=== PATIENT | female | born 1965 | race Caucasian/White ===

== ENCOUNTER 2017-04-22 03:34 | Inpatient (IN) | payer BC, OTHER ==
[~2017-04-22] VITALS: Ht 154.9 cm; Wt 66.7 kg
--- NOTE | 2017-04-22 03:45 | NUR ---
TO BED 5 A 52 YO FEMALE PATIENT BIBRA C/O "ABD PAIN X 2 HOURS" WITH NAUSEA AND VOMITING. VSS. NAD NOTED AT THIS TIME. SKIN WARM AND DRY. PLACED ON MONITOR. COMFORT MEASURES RENDERED.
[2017-04-22] MEDS ORDERED: ONDANSETRON HCL/PF 4 MG/2 ML VIAL ONE (04:21)
[2017-04-22] MEDS ORDERED: MORPHINE SULFATE INJ 4 MG/ML DISP.SYRIN ONE (04:22)
[2017-04-22 04:27] LABS: BASOPHILS # (AUTO) 0.1 /CMM (0.0-0.2); BASOPHILS % (AUTO) 0.3 % (0.0-2.0); EOSINOPHILS % (AUTO) 0.1 % (0.0-6.0); HEMATOCRIT 43 % (33-45); HEMOGLOBIN 15.1 g/dL (11.5-14.8); LYMPHOCYTES # (AUTO) 1.5 /CMM (0.8-4.8); LYMPHOCYTES % (AUTO) 7.8 % (20.0-44.0); MEAN CORPUSCULAR HEMOGLOBIN 34 PG (26.0-33.0); MEAN CORPUSCULAR HGB CONC 35 g/dl (31.0-36.0); MEAN CORPUSCULAR VOLUME 97 fL (82-100); MONOCYTES # (AUTO) 0.1 /CMM (0.1-1.30); MONOCYTES % (AUTO) 0.8 % (2.0-12.0); NEUTROPHILS # (AUTO) 17.5 /CMM (1.8-8.9); PLATELET COUNT (AUTO) 303 /CMM (150-450); RDW COEFFICIENT OF VARIATION 13.7 (11.5-15.0); RED BLOOD CELL COUNT(AUTO) 4.46 MIL/uL (4.0-5.2); WHITE BLOOD COUNT (AUTO) 19.3 K/uL (4.3-11.0)
[2017-04-22 04:30] LABS: APPEARANCE,URINE SL CLOUDY (CLEAR); BILIRUBIN,URINE 1+ (NEGATIVE); BLOOD, URINE NEGATIVE Ery/uL (NEGATIVE); KETONES,URINE TRACE (NEGATIVE); LEUKOCYTE ESTERASE ,URINE NEGATIVE (NEGATIVE); NITRITE, URINE NEGATIVE (NEGATIVE); PROTEIN,URINE 1+ mg/dl (NEGATIVE); UGLUCOSE NEGATIVE (NEGATIVE); UROBILINOGEN,URINE 0.2 EU/dL (0.2)
[2017-04-22] MEDS ORDERED: MORPHINE SULFATE INJ 2 MG/ML DISP.SYRIN IV ONE (04:30)
[2017-04-22] MEDS ORDERED: ONDANSETRON HCL/PF - ER 4 MG/2 ML VIAL IV ONE (04:30)
--- NOTE | 2017-04-22 04:30 | NUR ---
STARTED A SALINE LOCK ON LAC G20.
[2017-04-22 04:31] LABS: COLOR,URINE DARK YELLOW (YELLOW)
--- NOTE | 2017-04-22 04:34 | NUR ---
MEDICATED PATIENT ORDERED BY DR LORA.
[2017-04-22 04:36] LABS: CALCIUM, SERUM 12.3 mg/dL (8.5-10.1); CREATININE 1.4 mg/dL (0.6-1.3); POTASSIUM 3.9 mmol/L (3.5-5.1)
[2017-04-22 04:36] LABS: BACTERIA,URINE Moderate /HPF (None Seen); CALCIUM OXALATE CRYSTALS,UR Moderate /HPF (None Seen); RBC,URINE 0-2 /HPF (0-2); SQUAMOUS EPITHELIAL CELL,UR Many /HPF (None Seen)
--- NOTE | 2017-04-22 04:38 | NUR ---
PATIENT TO CT.
[2017-04-22 04:42] LABS: ALBUMIN 4.6 g/dL (3.4-5.0); BILIRUBIN,DIRECT 0.1 mg/dL (0.0-0.2); BILIRUBIN,TOTAL 0.5 mg/dL (0.2-1.0); TOTAL PROTEIN, SERUM 8.6 g/dL (6.4-8.2)
[2017-04-22] MEDS ORDERED: HYDROMORPHONE INJ 0.5 MG/0.5 ML SYRINGE ONE (05:21)
[2017-04-22] MEDS ORDERED: HYDROMORPHONE INJ 0.5 MG/0.5 ML SYRINGE IV ONE (05:30)
[2017-04-22] MEDS ORDERED: NA PHOS,M-B/NA PHOS,DI-BA 1 EA ENEMA RC ONE ×2 (05:30→05:35)
[2017-04-22] MEDS ORDERED: KETOROLAC TROMETHAMINE INJ 30 MG/ML VIAL ONE (05:39)
--- NOTE | 2017-04-22 05:48 | NUR ---
PATIENT IN THE BATHROOM AT THIS TIME.
[2017-04-22] MEDS ORDERED: PIPERACILLIN /TAZOBACTAM 3.375 G VIAL IV ONE (06:00)
[2017-04-22] MEDS ORDERED: PIPERACILLIN /TAZOBACTAM 3.375 G in IV D5W 50 ML IV SCH ×2 (06:00→12:00)
[2017-04-22] MEDS ORDERED: MAG HYDROX/AL HYDROX/SIMETH 30 ML UDC PO PRN (06:00)
[2017-04-22] MEDS ORDERED: MORPHINE SULFATE INJ 2 MG/ML DISP.SYRIN IV PRN (06:00)
[2017-04-22] MEDS ORDERED: Z GUARD REMEDY 2 OZ OINT TP PRN (06:00)
[2017-04-22] MEDS ORDERED: KETOROLAC TROMETHAMINE INJ 30 MG/ML VIAL IV ONE (06:00)
[2017-04-22] MEDS ORDERED: PIPERACILLIN /TAZOBACTAM 3.375 G in IV D5W 50 ML IV ONE (06:00)
--- NOTE | 2017-04-22 06:14 | NUR ---
CALLED FOR M/S BED.
[2017-04-22] MEDS ORDERED: MAGNESIUM HYDROXIDE 30 ML UDC ONE (06:17)
[2017-04-22] MEDS: MAGNESIUM HYDROXIDE 30 ML UDC PO PRN ×2 (06:23→23:35)
--- NOTE | 2017-04-22 06:29 | NUR ---
M/S 206-1 S/P CHANGE OF SHIFT PER HOUSE SUP
[2017-04-22] MEDS ORDERED: LAMO200T2 PO (06:49)
[2017-04-22] MEDS ORDERED: SERT100T PO (06:49)
[2017-04-22] MEDS ORDERED: VENL150C2 PO (06:49)
--- NOTE | 2017-04-22 07:24 | NUR ---
REPORT GIVEN TO COLTEN RAMIREZ FOR MS ADMISSION AND EDUARD.
[2017-04-22] MEDS ORDERED: PANTOPRAZOLE 40 MG TABLET.DR PO SCH (07:30)
[2017-04-22 07:33] LABS: TROPONIN I < 0.017 ng/mL (0.00-0.056)
[2017-04-22] MEDS ORDERED: BUDE10.2 IH (07:42)
[2017-04-22] MEDS ORDERED: ALBU8.5H8 IH (07:42)
[2017-04-22] MEDS ORDERED: LISI1TAB11 PO (07:42)
[2017-04-22 08:00] VITALS: BP 122/80
[2017-04-22] MEDS: IV NS 0.9% 1,000 ML IV PRN ×2 (08:12→23:35)
--- NOTE | 2017-04-22 09:08 | NUR ---
MS RN ADMITTING NOTES ADMITTED PT TO UNIT VIA WHEELCHAIR ALERT AND ORIENTED X4 ACCOMPANIED BY E.R. STAFF AND . PT TRANSFERRED TO BED AND ORIENTED TO UNIT. PT WITH DX OF ABDOMINAL PAIN AND HYPERCALCEMIA. V/S TAKEN AND RECORDED. PT ON ROOM AIR, BREATHING EVEN AND UNLABORED. ABDOMEN IS SOFT AND SLIGHTLY DISTENDED APPARENTLY DUE TO NOT HAVING BOWEL MOVEMENT SINCE LAST NIGHT BUT PT IS PASSING GAS AT TIMES. PT WITH IV ACCESS ON LEFT AC G#20, IVF OF NS @ 75ML/HR, NO INFILTRATIONS NOTED. SAFETY PRECAUTIONS INITIATED. BED IN LOW/LOCKED POSITION, CALL LIGHT KEPT WITHIN REACH. WILL CONTINUE TO MONITOR PT ACCORDINGLY.
[2017-04-22] MEDS ORDERED: IV NS 0.9% 1,000 ML IV PRN (12:00)
--- NOTE | 2017-04-22 12:08 | NUR ---
RN NOTES RECEIVED CALL FROM [facility] THAT PT'S LACTIC ACID WENT-UP FROM 3.1 TO 4.5, DR RAY Howard ON UNIT MADE AWARE WITH ORDER TO GIVE BOLUS OF NS 1,000ML AND REPEAT LACTIC ACID AFTER. WILL CONTINUE TO MONITOR.
[2017-04-22] MEDS: SERTRALINE HCL 50 MG TABLET PO SCH (12:12)
[2017-04-22] MEDS: PIPERACILLIN /TAZOBACTAM 3.375 G in IV NS 0.9% 50 ML IV SCH ×3 (12:13→23:35)
[2017-04-22] MEDS: VENLAFAXINE XR 150 MG CAP.SR.24H PO SCH (12:13)
[2017-04-22] MEDS: LamoTRIgine 100 MG TABLET PO SCH (12:13)
[2017-04-22 14:27] LABS: HEMOGLOBIN 14.8 g/dL (11.5-14.8)
[2017-04-22 16:00] VITALS: BP 122/80
[2017-04-22] MEDS ORDERED: CT SWABBABLE VALVE TRANS SET 1 EA INFUS.SET MC ONE (16:27)
[2017-04-22] MEDS ORDERED: IOHEXOL-350 100 ML VIAL IV ONE (16:27)
[2017-04-22] MEDS ORDERED: PEG 3350/NA SULF,BICARB,CL/KCL 4,000 ML BOTTLE PO ONE (16:30)
[2017-04-22] MEDS: ONDANSETRON HCL/PF 4 MG/2 ML VIAL IVP PRN (18:29)
[2017-04-22] MEDS: HYDROCODONE/APAP 5/325MG 1 EACH TABLET PO PRN (18:32)
--- NOTE | 2017-04-22 18:36 | NUR ---
RN NOTES PT HAD BOWEL MOVEMNET WITH WATERY BRWNISH MIXED WITH BLOOD FECES. LUMBER TRIMMER PAT ON UNIT AND AWARE. PT ALSO RESTLESS AND VOMITING AND C/O ABDOMINAL PAIN. CALLED PHARMACY FOR MORPHINE IVP BUT MED IS NOT AVAILABLE. CALLED DR BELL AND MADE AWARE WITH ORDER TO TRY NORCO 5/325MG, DISCONTINUE GOLYTELY, GIVE ONLY CLEAR LIQUID AND NPO POST MIDNIGHT UNTIL FURTHER INSTRUCTIONS/ORDER FROM MD. EXPLAINED TO PT AND AND BOTH VERBALIZED UNDERSTANDING. WILL CONTINUE TO MONITOR..
--- NOTE | 2017-04-22 19:36 | NUR ---
MS RN CLOSING NOTES DR COOK CAME TO UNIT WITH ORDER TO INSERT NGTUBE CONNECTED TO SUCTION AND CONTINUE WITH GOLYTELY VIA NGT TOLERATED. SUE CRAMER EXPLAINED TO PT AND AND VERBALIZED UNDERSTANDING. ALL NEEDS AND CARE ATTENDED WELL. IVF CONTINUES. ALL SAFETY MEASURES IN PLACED. CALL LIGHT WITHIN EASY REACH. ENDORSED TO REGULATORY LEADER NURSE.
--- NOTE | 2017-04-22 19:59 | NUR ---
MS RN NOTE: RECEIVE PT IN BED, A/O X4, NO ACUTE DISTRESS NOTED. BREATHING EVEN AND UNLABORED, NO SOB NOTED. BED LOCKED AND IN LOWEST POSITION, CALL LIGHT IN REACH. WILL CONTINUE TO MONITOR
[2017-04-22 20:00] VITALS: BP 135/88
--- NOTE | 2017-04-22 21:31 | NUR ---
MS RN NOTES PAGED DR. COOK, TO RELAY I WAS INSERTING NGT TO BOTH NARES + RESISTANCE, PT CRYING AND DOESN'T WANT TO PUT NGT ANYMORE. PER PT SHE HAS DEVIATED SEPTUM
--- NOTE | 2017-04-22 21:54 | NUR ---
PT REFUSED NGT INSERTION DESPITE EXPLAINING RISKS AND BENEFITS OFFERED [address] SUE BAE AWARE
--- NOTE | 2017-04-22 21:54 | NUR ---
MS RN NOTES SPOKE TO DR. COOK RELAYED POSITIVE RESISTANCE IN BOTH NARES WHILE INSERTING NGT REFUSING AT THIS MOMENT. PER DR. COOK AGREE NOT TO INSERT IF PT'S DOESN'T TOLERATE IT.
[2017-04-22] MEDS: PANTOPRAZOLE 40 MG VIAL IV SCH (23:35)
[2017-04-23] MEDS: MORPHINE SULFATE INJ 4 MG/ML DISP.SYRIN IV PRN ×5 (02:12→20:05)
[2017-04-23] MEDS: PIPERACILLIN /TAZOBACTAM 3.375 G in IV NS 0.9% 50 ML IV SCH ×4 (05:08→23:14)
[2017-04-23 06:56] LABS: EOSINOPHILS % (AUTO) 0.3 % (0.0-6.0); HEMATOCRIT 36 % (33-45); HEMOGLOBIN 12.7 g/dL (11.5-14.8); LYMPHOCYTES # (AUTO) 0.5 /CMM (0.8-4.8); LYMPHOCYTES % (AUTO) 5.7 % (20.0-44.0); MEAN CORPUSCULAR HEMOGLOBIN 34 PG (26.0-33.0); MEAN CORPUSCULAR HGB CONC 35 g/dl (31.0-36.0); MEAN CORPUSCULAR VOLUME 97 fL (82-100); MONOCYTES # (AUTO) 0.6 /CMM (0.1-1.30); MONOCYTES % (AUTO) 6.6 % (2.0-12.0); NEUTROPHILS # (AUTO) 7.8 /CMM (1.8-8.9); NEUTROPHILS % (AUTO) 87.4 % (43.0-81.0); PLATELET COUNT (AUTO) 198 /CMM (150-450); RDW COEFFICIENT OF VARIATION 13.7 (11.5-15.0); RED BLOOD CELL COUNT(AUTO) 3.72 MIL/uL (4.0-5.2); WHITE BLOOD COUNT (AUTO) 8.9 K/uL (4.3-11.0)
--- NOTE | 2017-04-23 07:04 | NUR ---
MS RN CLOSING NOTES PT COMFORTABLY ASLEEP AND EASILY AWAKEN, TOLERATING ROOM AIR 02 SAT 98%, IN STABLE CONDITION. RESPIRATION EVEN AND UNLABORED. KEPT CLEAN AND DRY AND COMFORTABLE, ALL NURSING CARE RENDERED. NEEDS ATTENDED AND ANTICIPATED, FREQUENT VISUAL CHECK DONE FOR SAFETY EVERY 2 HOURS. GOOD SKIN CARE PROVIDED. ON LOW BED AT ALL TIMES TO ENSURE SAFETY. SAFE HAZARD FREE ENVIRONMENT PROVIDED. CALL LIGHT WITHIN EASY TO REACH. WILL ENDORSE NEXT SHIFT CONTINUITY OF CARE. NO C/O OF PAIN,
[2017-04-23 07:06] LABS: CALCIUM, SERUM 8.2 mg/dL (8.5-10.1); CREATININE 1.2 mg/dL (0.6-1.3); MAGNESIUM 2.4 mg/dL (1.8-2.4); PHOSPHORUS 3.8 mg/dL (2.5-4.9); POTASSIUM 3.7 mmol/L (3.5-5.1)
--- NOTE | 2017-04-23 07:06 | NUR ---
STILL REFUSING NGT
[2017-04-23 07:09] VITALS: BP 134/70
[2017-04-23 07:10] LABS: THYROID STIMULATING HORMONE 0.53 uIU/mL (0.358-3.74)
--- NOTE | 2017-04-23 07:20 | NUR ---
RN NOTES PATIENT A/OX3, REFUSING NGT. REFUSING GOLYTELY, PER PATIENT IT MAKES HER VOMIT. EXPLAINED RISKS AND BENEFITS. STILL C/O ABDOMINAL PAIN. NPO AT THIS TIME. IVF INFUSING AND TOLERATING WELL, PATIENT STATED SHE HAS LIQUID STOOL WITH BLOOD. PATIENT IS SCHEDULED FOR AN EGD AND COLONOSCOPY, NOT SURE WHAT TIME. CONSENTS ARE SIGNED AND IN THE CHART. CALL LIGHT WITHIN REACH, WILL CONTINUE TO MONITOR.
[2017-04-23] MEDS ORDERED: PEG 3350/NA SULF,BICARB,CL/KCL 4,000 ML BOTTLE PO ONE (08:00)
[2017-04-23] MEDS ORDERED: MAGNESIUM CITRATE 296 ML BOTTLE PO ONE (08:00)
[2017-04-23] MEDS ORDERED: NA PHOS,M-B/NA PHOS,DI-BA 1 EA ENEMA RC PRN (08:00)
[2017-04-23] MEDS: VENLAFAXINE XR 150 MG CAP.SR.24H PO SCH (08:42)
[2017-04-23] MEDS: SERTRALINE HCL 50 MG TABLET PO SCH (08:42)
[2017-04-23] MEDS: LamoTRIgine 100 MG TABLET PO SCH (08:42)
[2017-04-23] MEDS: ONDANSETRON HCL/PF 4 MG/2 ML VIAL IVP PRN (08:43)
[2017-04-23 08:49] VITALS: BP 121/72
[2017-04-23] MEDS: ACETAMINOPHEN 325 MG TABLET PO PRN (09:59)
--- NOTE | 2017-04-23 10:00 | NUR ---
RN NOTES SPOKE WITH NEISHA HATFIELD FROM GI, PER DATASTAGE ARCHITECT GIVE PATIENT CLEAR LIQUID DIET TODAY AND NPO AFTER MIDNIGHT FOR EGD AND COLONOSCOPY PROCEDURE TOMORROW, SHE ALSO ORDERED TO REPEAT CBC LATER TODAY. INFORMED MD RE: PATIENT'S REFUSAL OF GOLYTELY, BUT PATIENT DID TAKE MAGNESIUM CITRATE. PATIENT HAS HAD NO EPISODE OF VOMITING AT THIS TIME, PATIENT VERBALIZES FEELING GASSY AND SHE'S BURPING A LOT. PATIENT DID HAVE A BIG BOWEL MOVEMENT, PER PATIENT ITS SOFTER NOW THAN LIQUID. ASSISTED PATIENT WITH ADLS. PATIENT IS ALSO SCHEDULED TO HAVE [facility] GI BLEED BLOOD LOSS, CONSENT SIGNED, NEEDS ATTENDED AND MET, CALL LIGHT WITHIN REACH, WILL CONTINUE TO MONITOR.
[2017-04-23 13:06] LABS: HEMOGLOBIN 12.3 g/dL (11.5-14.8)
--- NOTE | 2017-04-23 13:33 | NUR ---
RN NOTES PATIENT TAKEN TO [place] FOR GI BLEED SCAN. PATIENT HAD A FEW DIARRHEA SINCE THIS MORNING. BM IS BROWN LIQUID WITH STRONG SMELL.
--- NOTE | 2017-04-23 15:00 | NUR ---
RN NOTES PER DR. GARCIA, CANCEL 24 HR URINE COLLECTION. ORDER NOTED AND CARRIED OUT.
[2017-04-23 16:16] VITALS: BP 125/81
[2017-04-23 17:44] LABS: BASOPHILS % (AUTO) 0.3 % (0.0-2.0); EOSINOPHILS % (AUTO) 0.2 % (0.0-6.0); HEMATOCRIT 35 % (33-45); HEMOGLOBIN 11.9 g/dL (11.5-14.8); LYMPHOCYTES # (AUTO) 0.7 /CMM (0.8-4.8); LYMPHOCYTES % (AUTO) 5.6 % (20.0-44.0); MEAN CORPUSCULAR HEMOGLOBIN 34 PG (26.0-33.0); MEAN CORPUSCULAR HGB CONC 34 g/dl (31.0-36.0); MEAN CORPUSCULAR VOLUME 98 fL (82-100); MONOCYTES # (AUTO) 0.6 /CMM (0.1-1.30); MONOCYTES % (AUTO) 4.7 % (2.0-12.0); NEUTROPHILS # (AUTO) 11.3 /CMM (1.8-8.9); NEUTROPHILS % (AUTO) 89.2 % (43.0-81.0); PLATELET COUNT (AUTO) 196 /CMM (150-450); RED BLOOD CELL COUNT(AUTO) 3.53 MIL/uL (4.0-5.2); WHITE BLOOD COUNT (AUTO) 12.7 K/uL (4.3-11.0)
--- NOTE | 2017-04-23 18:42 | NUR ---
RN NOTES PATIENT ALERT AND ORIENTED X3, PATIENT FEELING EXHAUSTED DUE TO BOWEL PREP. PATIENT ABLE TO DRINK GOLYTELY WITH APPLE JUICE. PATIENT HAS HAD 8 LIQUID BROWN STOOL THROUGHOUT THE SHIFT, ASSISTED WITH PERICARE, ENCOURAGED TO DRINK LOTS OF FLUIDS, CURRENTLY ON IVF AND TOLERATING WELL, NEISHA MANDOLIN REPAIRER MADE ROUNDS AND REVIEWED THE RESULT OF THE GI BLEED SCAN, NO NEW ORDER NOTED. PER MANDOLIN REPAIRER, JUST CONTINUE THE BOWEL PREP FOR EGD AND COLONOSCOPY TOMORROW. KEEP PATIENT NPO AFTER MIDNIGHT, ALL NEEDS ATTENDED AND MET, CALL LIGHT WITHIN REACH, WILL ENDORSE TO MS SQL DBA FOR EDUARD.
[2017-04-23 20:00] VITALS: BP 128/69
[2017-04-23 20:42] VITALS: BP 128/69
[2017-04-23] MEDS: IV NS 0.9% 1,000 ML IV PRN (21:25)
[2017-04-23] MEDS: PANTOPRAZOLE 40 MG VIAL IV SCH (23:14)
[2017-04-24] MEDS: MORPHINE SULFATE INJ 4 MG/ML DISP.SYRIN IV PRN ×4 (00:10→20:32)
[2017-04-24] MEDS: PIPERACILLIN /TAZOBACTAM 3.375 G in IV NS 0.9% 50 ML IV SCH ×4 (05:28→23:11)
--- NOTE | 2017-04-24 06:53 | NUR ---
MS RN CLOSING NOTES PT ASLEEP IN BED AND EASILY AWAKEN, HOB ELEVATED, TOLERATING ROOM AIR 02 SAT 99%, AFEBRILE, IN STABLE CONDITION. RESPIRATION EVEN AND UNLABORED. ALL NURSING CARE RENDERED. NEEDS ATTENDED AND ANTICIPATED, KEPT CLEAN AND DRY AND COMFORTABLE. FREQUENT VISUAL CHECK DONE FOR SAFETY EVERY 2 HOURS. MAINTANS NPO. ON LOW BED AT ALL TIMES TO ENSURE SAFETY. SAFE HAZARD FREE ENVIRONMENT PROVIDED. CALL LIGHT WITHIN EASY TO REACH. WILL ENDORSE NEXT SHIFT CONTINUITY OF CARE. BOWEL MOVEMENT OF THIS MOVEMENT LIQUID LIGHT BROWNISH, OFFERED FLEET ENEMA REFUSES AT THIS MOMENT DESPITE RISKS AND BENEFITS PER PT SHE WANTS IT LATER WILL TRY AGAIN AND ENDORSE TO THE AM NURSE
[2017-04-24 07:20] LABS: HEMOGLOBIN 10.5 g/dL (11.5-14.8)
--- NOTE | 2017-04-24 07:30 | NUR ---
RN MS NOTES PT IN BED, AWAKE, ALERT AND ORIENTED, NO COMPLAINT OF PAIN AT THIS TIME, RESPIRATIONS NORMAL AND NOT LABORED, PLAN OF CARE DISCUSSED WITH PT, VERBALIZED UNDERSTANDING, ASSISTED TO BEDSIDE COMMODE, ASSISTED WITH PERINEAL CARE THEN BACK TO BED, KEPT COMFORTABLE, CALL LIGHT WITHIN REACH, NEEDS ATTENDED.
[2017-04-24 08:00] VITALS: BP 117/71
[2017-04-24] MEDS: SERTRALINE HCL 50 MG TABLET PO SCH ×2 (09:00→13:31)
[2017-04-24] MEDS: VENLAFAXINE XR 150 MG CAP.SR.24H PO SCH ×2 (09:00→13:33)
[2017-04-24] MEDS: LamoTRIgine 100 MG TABLET PO SCH ×2 (09:00→13:32)
[2017-04-24] MEDS ORDERED: FENTANYL PF 100MCG/2ML AMPUL ONE (10:01)
--- NOTE | 2017-04-24 13:00 | NUR ---
RN MS NOTES PT BACK FROM [facility] S/P EGD AND COLONOSCOPY, IN STABLE CONDITION, NOT IN DISTRESS, POST OP ORDERS MADE AND CARRIED OUT, KEPT PT COMFORTABLE, NEEDS ATTENDED, IV FLUIDS INFUSING WELL.
[2017-04-24] MEDS ORDERED: ANESTHESIA TRAY IN PYXIS 1 EA TRAY MC ONE (13:57)
[2017-04-24 16:00] VITALS: BP 123/69
[2017-04-24] MEDS: ACETAMINOPHEN 325 MG TABLET PO PRN ×2 (18:02→19:47)
--- NOTE | 2017-04-24 19:00 | NUR ---
RN NOTES RECEIVE PT IN BED, A/O X 4, STABLE, NO S/S OF DISTRESS, PATIENT KEPT COMFORTABLE AT THIS TIME, SAFETY MEASURES IN PLACE, CALL LIGHT WITHIN REACH, WILL CONTINUE TO MONITOR.
[2017-04-24 19:34] LABS: HEMOGLOBIN 9.8 g/dL (11.5-14.8)
[2017-04-24 20:00] VITALS: BP 128/79
[2017-04-24] MEDS: IV NS 0.9% 1,000 ML IV PRN (21:21)
[2017-04-24] MEDS: PANTOPRAZOLE 40 MG VIAL IV SCH (23:11)
[2017-04-25] MEDS: MORPHINE SULFATE INJ 4 MG/ML DISP.SYRIN IV PRN ×3 (03:29→18:11)
[2017-04-25] MEDS: PIPERACILLIN /TAZOBACTAM 3.375 G in IV NS 0.9% 50 ML IV SCH ×4 (05:01→23:17)
--- NOTE | 2017-04-25 06:35 | NUR ---
MS RN CLOSING NOTES PATIENT IN BED ASLEEP AND EASILY AWAKEN, STABLE, TOLERATING ROOM AIR 98% 1:1 SITTER AT BEDSIDE, HEAD OF BED ELEVATED FOR BETTER LUNG EXPANSION AND GOOD CIRCULATION. NO SOB, NOT IN APPARENT DISTRESS, NO NAUSEA, NO VOMITING, IV SITE INTACT WITH NO S/S OF INFILTRATION NOTED, KEPT CLEAN AND DRY AND COMFORTABLE. VS STABLE, ALL DUE MEDS WAS GIVEN. NEEDS ATTENDED AND ANTICIPATED. NURSING CARE RENDERED, KEPT CLEAN DRY AND COMFORTABLE. ASSISTED REPOSITION EVERY 2 HOURS FOR COMFORT AND SKIN MANAGEMENT. PT ON LOW BED TO ENSURE SAFETY, CALL LIGHT WITHIN REACH, WILL ENDORSE TO THE NEXT SHIFT CONTINUE PLAN OF CARE. Addendum: 04/25/17 at 0636 by JAYMIE LINDER RN ADDENDUM: MISTAKEN ENTRY/ FOR DIFFERENT PATIENT DISREGARD THIS DOCUMENTATION
--- NOTE | 2017-04-25 06:36 | NUR ---
MS RN CLOSING NOTES PATIENT IN BED ASLEEP AND EASILY AWAKEN, HEAD OF BED ELEVATED FOR BETTER LUNG EXPANSION AND GOOD CIRCULATION. STABLE, NOT IN DISTRESS. TOLERATING ROOM AIR 99% NO SOB, NOT IN APPARENT DISTRESS, KEPT CLEAN AND DRY AND COMFORTABLE. NEEDS ATTENDED AND ANTICIPATED. NURSING CARE RENDERED, KEPT CLEAN DRY AND COMFORTABLE. PT ON LOW BED TO ENSURE SAFETY, CALL LIGHT WITHIN REACH, WILL ENDORSE TO THE NEXT SHIFT CONTINUE PLAN OF CARE.
[2017-04-25 07:08] LABS: BASOPHILS % (AUTO) 0.2 % (0.0-2.0); EOSINOPHILS # (AUTO) 0.1 /CMM (0.0-0.7); HEMATOCRIT 28 % (33-45); HEMOGLOBIN 9.8 g/dL (11.5-14.8); LYMPHOCYTES # (AUTO) 0.7 /CMM (0.8-4.8); LYMPHOCYTES % (AUTO) 8.9 % (20.0-44.0); MEAN CORPUSCULAR HEMOGLOBIN 34 PG (26.0-33.0); MEAN CORPUSCULAR HGB CONC 35 g/dl (31.0-36.0); MEAN CORPUSCULAR VOLUME 98 fL (82-100); MONOCYTES # (AUTO) 0.5 /CMM (0.1-1.30); MONOCYTES % (AUTO) 6.8 % (2.0-12.0); NEUTROPHILS # (AUTO) 6.7 /CMM (1.8-8.9); NEUTROPHILS % (AUTO) 83.1 % (43.0-81.0); PLATELET COUNT (AUTO) 189 /CMM (150-450); RDW COEFFICIENT OF VARIATION 13.8 (11.5-15.0)
[2017-04-25 07:21] LABS: CALCIUM, SERUM 7.5 mg/dL (8.5-10.1); CREATININE 0.7 mg/dL (0.6-1.3); MAGNESIUM 2.8 mg/dL (1.8-2.4); PHOSPHORUS 2.3 mg/dL (2.5-4.9); POTASSIUM 3.4 mmol/L (3.5-5.1)
[2017-04-25 08:58] VITALS: BP 134/83
[2017-04-25] MEDS ORDERED: POTASSIUM CHLORIDE 20 MEQ POWDER PACKET PO SCH (09:30)
[2017-04-25] MEDS: LamoTRIgine 100 MG TABLET PO SCH (09:45)
[2017-04-25] MEDS: VENLAFAXINE XR 150 MG CAP.SR.24H PO SCH (09:45)
[2017-04-25] MEDS: SERTRALINE HCL 50 MG TABLET PO SCH (09:46)
--- NOTE | 2017-04-25 10:21 | NUR ---
MS RN NOTES PATIENT IN BED, AWAKE. A/OX4, TOLERATING ROOM AIR. IVC IN LFA PATENT AND INTAC, IVF NS INFUSING AT 75ML/HR. ON FULL LIQUIDS DIET. PATIENT REPORTED PAIN IN HER LOWER ABDOMEN, NO N/V. GIVEN MORPHINE 2MG IV PRN, EDUCATE PATIENT INDICATION AND POSSIBLE SIDE EFFECT OF MORPHINE, VERBALIZED UNDERSTANDING. CALL LIGHT WITHIN REACH. WILL CONT TO MONITOR.
[2017-04-25 10:51] LABS: BAND % (MANUAL) 3 % (0.0-5.0); LYMPHOCYTES % (MANUAL) 20 % (16-48); MONOCYTES % (MANUAL) 7 % (0-11.0); NEUTROPHILS % (MANUAL) 70 (42-76)
[2017-04-25] MEDS ORDERED: POTASSIUM PHOSPHATE MM 5 MMOL in IV D5W 100 ML IV SCH (11:00)
[2017-04-25 15:43] VITALS: BP 137/79
[2017-04-25] MEDS: IV NS 0.9% 1,000 ML IV PRN ×2 (15:56→16:06)
--- NOTE | 2017-04-25 16:30 | NUR ---
PATIENT CURRENTLY ON FULL LIQUIDS DIET, REQUESTING APPLE SAUCE TO EAT. NO EPISODE OF N/V SINCE THIS MORNING. NOTIFIED NEISHA OSULLIVAN NP/DR. CUENCA. ORDERED REGULAR DIET, PATIENT MADE AWARE.
[2017-04-25] MEDS: ONDANSETRON HCL/PF 4 MG/2 ML VIAL IVP PRN (17:02)
[2017-04-25] MEDS ORDERED: METOCLOPRAMIDE HCL 10 MG/10 ML UDC PO PRN (18:00)
--- NOTE | 2017-04-25 18:50 | NUR ---
MS RN CLOSING NOTES PATIENT IS A/O X4. EPISODE OF ABDOMINAL PAIN TODAY, MEDICATED WITH MORPHINE 2MG IV PRN WITH HELP. AMBULATE AND USES BEDSIDE COMMODE WITHOUT DIFFICULTY. ON REGULAR DIET, NO EPISODE OF VOMITING. CONT ANTIBIOTIC IV AND HOSPITALIZATION PER GLASS DESIGNER MD. CALL LIGHT WITHIN REACH. WILL ENDORSE TO ONCOMING RN.
--- NOTE | 2017-04-25 19:30 | NUR ---
MS RN MS NOTES PT RECEIVED USING BS, AWAKE, ALERT AND ORIENTED X 4, NO COMPLAINT OF PAIN AT THIS TIME, RESPIRATIONS NORMAL AND NOT LABORED, PLAN OF CARE DISCUSSED WITH PT, VERBALIZED UNDERSTANDING, WILL KEEP COMFORTABLE. ON REGULAR DIET, TOLERATING WELL SO FAR. NO C/O N/V NOTED. IV SITE TO LFA INTACT PATENT, RUNNING WITH IVF ORDERED. BED IN LOW LOCKED POSITION. CALL LIGHT WITHIN REACH, WILL CONTINUE TO MONITOR CLOSELY.
[2017-04-25 20:00] VITALS: BP 129/74
[2017-04-25] MEDS: PANTOPRAZOLE 40 MG VIAL IV SCH (23:17)
--- NOTE | 2017-04-26 02:00 | NUR ---
MS RN NOTES PATIENT SLEEPING COMFORTABLY @ THIS TIME, NO C/O N/V NOTED. DENIED ANY C/O ABDOMINAL PAIN SO FAR. SLEEPING WELL. MONITORING CLOSELY.
[2017-04-26] MEDS: PIPERACILLIN /TAZOBACTAM 3.375 G in IV NS 0.9% 50 ML IV SCH ×4 (05:12→23:06)
[2017-04-26] MEDS: IV NS 0.9% 1,000 ML IV PRN (05:12)
--- NOTE | 2017-04-26 06:32 | NUR ---
REFUSED PAIN MED PATIENT HAD SMALL LOOSE BM, NOT ABLE TO COLLECT BM SINCE ITS LOOSE (WATERY). PT HAD C/O PAIN & ASKED FOR PAIN MED, OFFERED HER PAIN MEDS WHICH COULD BE TAKEN BUT THEN SHE REFUSED TO TAKE ANY PAIN MED. WANTED TO WAIT FOR A WHILE IF PAIN SUBSIDES WITHOUT TAKING THE MED. ALSO PT VERBALIZED THAT SHE WILL CALL THE NURSE IF STILL PAIN MED IS NEEDED. WILL MONITOR CLOSELY.
--- NOTE | 2017-04-26 07:02 | NUR ---
MS RN CLOSING NOTES PT SLEPT WELL @ NIGHT, ALERT AND ORIENTED X 4, NO COMPLAINT OF PAIN AT THIS TIME, RESP NORMAL & NON LABORED. ON REGULAR DIET, TOLERATING WELL. USES BSC. HAD SMALL LOOSE BM. NO C/O N/V NOTED. IV SITE TO LFA INTACT PATENT, RUNNING WITH IVF ORDERED. BED IN LOW LOCKED POSITION. CALL LIGHT WITHIN REACH, WILL ENDORSE TO AM RN TO CONTINUE MONITORING CLOSELY.
[2017-04-26 07:24] LABS: BASOPHILS % (AUTO) 0.3 % (0.0-2.0); EOSINOPHILS # (AUTO) 0.1 /CMM (0.0-0.7); EOSINOPHILS % (AUTO) 0.9 % (0.0-6.0); HEMATOCRIT 28 % (33-45); HEMOGLOBIN 9.8 g/dL (11.5-14.8); LYMPHOCYTES # (AUTO) 1.1 /CMM (0.8-4.8); LYMPHOCYTES % (AUTO) 15.1 % (20.0-44.0); MEAN CORPUSCULAR HEMOGLOBIN 34 PG (26.0-33.0); MEAN CORPUSCULAR HGB CONC 35 g/dl (31.0-36.0); MEAN CORPUSCULAR VOLUME 96 fL (82-100); MONOCYTES # (AUTO) 0.6 /CMM (0.1-1.30); MONOCYTES % (AUTO) 9.1 % (2.0-12.0); NEUTROPHILS # (AUTO) 5.3 /CMM (1.8-8.9); NEUTROPHILS % (AUTO) 74.6 % (43.0-81.0); PLATELET COUNT (AUTO) 214 /CMM (150-450); RDW COEFFICIENT OF VARIATION 13.6 (11.5-15.0); RED BLOOD CELL COUNT(AUTO) 2.92 MIL/uL (4.0-5.2); WHITE BLOOD COUNT (AUTO) 7.1 K/uL (4.3-11.0)
[2017-04-26 07:39] LABS: CALCIUM, SERUM 7.8 mg/dL (8.5-10.1); CREATININE 0.8 mg/dL (0.6-1.3); MAGNESIUM 2.1 mg/dL (1.8-2.4); PHOSPHORUS 2.3 mg/dL (2.5-4.9); POTASSIUM 3.5 mmol/L (3.5-5.1)
[2017-04-26 08:00] VITALS: BP 139/88
[2017-04-26] MEDS: SERTRALINE HCL 50 MG TABLET PO SCH (08:12)
[2017-04-26] MEDS: VENLAFAXINE XR 150 MG CAP.SR.24H PO SCH (08:12)
[2017-04-26] MEDS: LamoTRIgine 100 MG TABLET PO SCH (08:20)
--- NOTE | 2017-04-26 08:22 | NUR ---
MS RN NOTES PATIENT IS AWAKE, A/OX4, USES BEDSIDE COMMODE, VOIDED WITHOUT DIFFICULTY. IVC IN LFA WAS DISLODGED, WILL RE INSERT. REPORTED NO N/V DURING THE NIGHT. CALL LIGHT WITHIN REACH. WILL CONT TO MONITOR.
[2017-04-26] MEDS: ONDANSETRON HCL/PF 4 MG/2 ML VIAL IVP PRN (11:43)
[2017-04-26] MEDS: MORPHINE SULFATE INJ 4 MG/ML DISP.SYRIN IV PRN ×2 (15:04→20:40)
[2017-04-26] MEDS ORDERED: ERYTHROMYCIN 500 MG in IV NS 0.9% 100 ML IV SCH (17:00)
[2017-04-26] MEDS ORDERED: Sodium Phosphate 15 MMOL in IV D5W 250 ML IV ONE (17:00)
[2017-04-26] MEDS ORDERED: K PHOS NEUTRAL 250 MG TABLET PO ONE (17:00)
[2017-04-26] MEDS: METOCLOPRAMIDE HCL 10 MG/2 ML VIAL IV SCH (18:03)
--- NOTE | 2017-04-26 19:20 | NUR ---
MS RN NOTES: PATIENT TAKEN TO RADIOLOGY VIA WHEELCHAIR FOR STAT CT AB WITHOUT CONTRAST.
--- NOTE | 2017-04-26 19:27 | NUR ---
MS RN CLOSING NOTES PATIENT IS A/O X4. IVC CRISPIN PATENT AND INTACT, IVF NS INFUSING AT 75ML/HR, PHOSPHORUS REPLACED. PATIENT IS PLACE ON NPO, XRAY ABDOMEN DONE, NOTIFIED NEISHA OSULLIVAN NP WITH RESULT, ORDERED NGT TO INTERMITTENT WALL SUCTION. PER PATIENT SHE HAD EXPERIENCE NGT INSERTION BEFORE AND IT MADE HER SCREAM A LOT, REFUSING NGT INSERTION AT THIS TIME AND WANTS TO HAVE LIDOCAINE AND ATIVAN FIRST BEFORE TUBE INSERTION. EDUCATE PATIENT, EXPLAINED RISK AND BENEFITS OF NGT TO SUCTION, PATIENT STILL INSISTING LIDOCAINE AND ATIVAN FIRST. NOTIFIED NEISHA OSULLIVAN NP DECLINED LIDOCAINE AND ATIVAN PRIOR NGT TUBE INSERTION AND ORDERED STAT CT ABDOMEN WITHOUT CONTRAST. CALL LIGHT WITHIN REACH. WILL ENDORSE TO ONCOMING RN.
--- NOTE | 2017-04-26 19:54 | NUR ---
MS RN NOTES: PT BACK IN BED WITH FAMILY AT BEDSIDE.
--- NOTE | 2017-04-26 19:55 | NUR ---
MS RN OPENING NOTES: RECEIVED PT IN BED AND IS ON ROOM AIR AND TOLERATING WELL. FAMILY MEMBER AT BEDSIDE. PT VERBALIZING PAIN IN HER ABDOMEN. PT HAS IV ON L UPPER ARM #22G AND IS TO BE CONNECTED BACK TO FINISH HER SODIUM PHOSPHATE IV. PT INFORMED THAT SHE IS TO REMAIN NPO PER MD ORDERS. INFORMED PT ABOUT NG TUBE INSERTION BUT INFORMED HER THAT MANAGER ADVERTISING DID NOT WANT TO ORDER LIDOCAINE OR ATIVAN SO PT REFUSED. MANAGER ADVERTISING AWARE. CALL LIGHT WITHIN PT'S REACH. BED KEPT IN LOW, LOCKED POSITION, AND SIDE RAILS X 2UP. WILL CONTINUE TO MONITOR PT.
[2017-04-26 20:00] VITALS: BP 167/94
--- NOTE | 2017-04-26 20:07 | NUR ---
MS RN NOTES: SPOKE WITH ALYSIA OSULLIVAN AND INFORMED HER OF RESULTS OF STAT CT AB WITHOUT CONSENT. GOT ORDER TO MAKE SURE SURGERY SEES HER AND KEEP HER NPO. Addendum: 04/27/17 at 0159 by MIKAYLA DELGADILLO RN CONTRAST NOT CONSENT
--- NOTE | 2017-04-26 20:16 | NUR ---
MS RN NOTES: DR. ANGELITA COOK AT BEDSIDE.
--- NOTE | 2017-04-26 20:40 | NUR ---
MS RN NOTES: INFORMED PT THAT PER DR. ANGELITA COOK PT TO REMAIN NPO BUT CAN HAVE ICE CHIPS. PT ALSO COMPLAINING OF 9/10 ABDOMEN PAIN. PT WAS ADMINISTERED MORPHINE VIA IV. PT CONNECTED BACK TO FLUIDS. PT ON SODIUM PHOSPHATE VIA IV. WILL CONTINUE TO MONITOR PT.
[2017-04-26] MEDS: PANTOPRAZOLE 40 MG VIAL IV SCH (23:06)
[2017-04-26 23:20] VITALS: BP 156/95
--- NOTE | 2017-04-27 00:02 | NUR ---
MS RN NOTES: PT NOT COMPLAINING OF ANY NAUSEA/VOMITING. CALLED ALL FLOORS TO SEE IF REGLAN IV AVAILABLE AND NO MEDROOM HAD IT. WILL NON-ADMIN. WILL CONTINUE TO MONITOR PT.
[2017-04-27] MEDS: IV NS 0.9% 1,000 ML IV PRN ×2 (05:04→23:52)
[2017-04-27] MEDS: PIPERACILLIN /TAZOBACTAM 3.375 G in IV NS 0.9% 50 ML IV SCH ×4 (05:04→23:47)
[2017-04-27] MEDS: METOCLOPRAMIDE HCL 10 MG/2 ML VIAL IV SCH ×4 (05:16→17:25)
--- NOTE | 2017-04-27 06:49 | NUR ---
MS RN CLOSING NOTES: ALL NEEDS WERE ATTENDED AND ANTICIPATED FOR. BSC MADE AVAILABLE. PT ON ROOM AIR AND TOLERATING WELL. PT KEPT NPO AND OKAY FOR ICE CHIPS PER DR. ANGELITA COOK. PT REMAINED NPO. PT HAS L UPPER ARM #22G AND IS BEING INFUSED WITH NS AT 75ML/HR. CALL LIGHT WITHIN PT'S REACH. BED KEPT IN LOW, LOCKED POSITION, AND SIDE RAILS X 2UP. WILL ENDORSE TO AM NURSE FOR EDUARD.
--- NOTE | 2017-04-27 07:58 | NUR ---
MS RN NOTES PATIENT IS AWAKE, A/OX4, TOLERATING ROOM AIR. CURRENTLY NPO STATUYS, MAY HAVE ICE CHIPS PER REPORT. DENIES PAIN, IVC IN LEFT UPPER ARM, IVF NS INFUSING AT 75ML/HR. CALL LIGHT WITHIN REACH. WILL CONT TO MONITOR.
[2017-04-27 08:00] VITALS: BP 144/88
[2017-04-27] MEDS: LamoTRIgine 100 MG TABLET PO SCH ×2 (09:00→11:01)
[2017-04-27] MEDS: VENLAFAXINE XR 150 MG CAP.SR.24H PO SCH ×2 (09:00→11:01)
[2017-04-27] MEDS: SERTRALINE HCL 50 MG TABLET PO SCH ×2 (09:00→11:01)
--- NOTE | 2017-04-27 10:57 | NUR ---
PATIENT CURRENTLY ON NPO STATUS, AM MEDICATIONS WAS NOT ADMINISTERED THIS MORNING. PATIENT REQUESTING TO TAKE MEDICATIONS NOW. SEEN BY DR. MAYA, REVIEWED CT ABDOMEN RESULT, PER MD PATIENT CAN START ON CLEAR LIQUIDS AND MAY TAKE ORAL MEDS IF OK WITH DR. COOK/SURGEON. CALLED SPOKE WITH DR. COOK, PER PATIENT CAN HAVE HER MEDS WITH SIPS OF WATER ONLY, PATIENT MADE AWARE.
[2017-04-27] MEDS: MORPHINE SULFATE INJ 4 MG/ML DISP.SYRIN IV PRN (12:05)
[2017-04-27 16:00] VITALS: BP 135/77
[2017-04-27] MEDS ORDERED: VENLAFAXINE XR 150 MG CAP.SR.24H PO SCH (17:30)
--- NOTE | 2017-04-27 18:42 | NUR ---
MS RN CLOSING NOTES PATIENT IS A/O X4, NO EPISODE OF VOMITING TODAY, NO DIARRHEA NOTED. PATIENT AMBULATES AND REPORTED PASSING GAS. SEEN BY KRIS ANDERSON NP. STARTED ON CLEAR LIQUIDS DIET, PATIENT IS AWARE. IVC LFA PATENT AND INTACT, IVF NS INFUSING AT 75ML/HR. CONT HOSPITALIZATION PER MD. WILL ENDORSE TO ONCOMING RN.
[2017-04-27] MEDS ORDERED: ALBUTEROL FS 2.5 MG/3 ML VIAL.NEB NEB PRN (19:30)
--- NOTE | 2017-04-27 19:30 | NUR ---
RN OPEN NOTES RECEIVED PATIENT AWAKE IN BED WITH FAMILY AT BEDSIDE. A/O X4. NO SIGNS OF DISTRESS OR DISCOMFORT. BREATHING EVEN AND UNLABORED. DENIES ANY PAIN AT THIS TIME. IV ACCESS IN CRISPIN WITH NS INFUSING, PATENT AND INTACT, NO SIGNS OF REDNESS OR INFILTRATION. BED IN LOW LOCKED POSITION WITH SIDE RAILS X2. CALL LIGHT WITHIN REACH. WILL CONTINUE TO MONITOR.
[2017-04-27 20:00] VITALS: BP 152/92
[2017-04-27 20:06] VITALS: BP 152/92
--- NOTE | 2017-04-27 21:53 | NUR ---
RN NOTES ADMINISTERED MORPHINE 2MG ORDERED FOR PAIN 8/10 IN LOWER ABD. VSS. WILL CONTINUE TO MONITOR.
[2017-04-27] MEDS: PANTOPRAZOLE 40 MG VIAL IV SCH (23:47)
[2017-04-27] MEDS: HYDROCODONE/APAP 5/325MG 1 EACH TABLET PO PRN (23:51)
[2017-04-28] MEDS: MORPHINE SULFATE INJ 4 MG/ML DISP.SYRIN IV PRN ×3 (03:53→21:04)
--- NOTE | 2017-04-28 03:53 | NUR ---
RN NOTES ADMINISTERED MORPHINE 2MG ORDERED FOR PAIN 8/10 IN LOWER ABD. VSS. WILL CONTINUE TO MONITOR.
[2017-04-28] MEDS: PIPERACILLIN /TAZOBACTAM 3.375 G in IV NS 0.9% 50 ML IV SCH ×3 (05:24→17:30)
[2017-04-28] MEDS: METOCLOPRAMIDE HCL 10 MG/2 ML VIAL IV SCH ×4 (06:00→17:18)
--- NOTE | 2017-04-28 07:15 | NUR ---
REPORT RECEIVED AT THE BEDSIDE. PATIENT IS RESTING COMFORTABLY IN BED. NO SOB OR DISTRESS NOTED AT THIS TIME. PATIENT REPORTS TOLERABLE PAIN. BED IN A LOW POSITION, CALL LIGHT WITHIN PATIENT REACH. WILL CONTINUE TO MONITOR.
--- NOTE | 2017-04-28 07:39 | NUR ---
RN CLOSING NOTES PATIENT AWAKE IN BED. A/O X4. NO SIGNS OF DISTRESS OR DISCOMFORT. BREATHING EVEN AND UNLABORED. IV ACCESS IN CRISPIN WITH NS INFUSING, PATENT AND INTACT, NO SIGNS OF REDNESS OR INFILTRATION. ALL NEEDS MET. NO SIGNIFICANT CHANGES THROUGH THE NIGHT. BED IN LOW LOCKED POSITION WITH SIDE RAILS X2. CALL LIGHT WITHIN REACH. ENDORSED TO AM SHIFT FOR EUDARD.
[2017-04-28 08:00] VITALS: BP 158/94
[2017-04-28] MEDS: VENLAFAXINE XR 150 MG CAP.SR.24H PO SCH (08:42)
[2017-04-28] MEDS: SERTRALINE HCL 50 MG TABLET PO SCH (08:42)
[2017-04-28] MEDS: LISINOPRIL (20MG) 20 MG TABLET PO SCH (08:43)
[2017-04-28] MEDS: HYDROCHLOROTHIAZIDE 25 MG TABLET PO SCH (08:43)
[2017-04-28] MEDS: LamoTRIgine 100 MG TABLET PO SCH (08:43)
[2017-04-28] MEDS ORDERED: Medication Not On Formulary EA (Sertraline Hcl (Zoloft) 200 MG) PO SCH (09:00)
[2017-04-28] MEDS ORDERED: Budesonide/Formoterol Fumarate (Symbicort 160-4.5 Mcg) INH SCH (09:00)
[2017-04-28] MEDS: ONDANSETRON HCL/PF 4 MG/2 ML VIAL IVP PRN (09:48)
--- NOTE | 2017-04-28 11:50 | NUR ---
CALLED PHARMACY ABOUT ORDERED REGLAN THAT IS NOT ON THE FLOOR. THEY STATE THERE IS A SHORTAGE AND ONLY TO GIVE THE MED IF THE PATIENT REALLY NEEDS IT. SPOKE TO THE PT AND SHE STATES THE [facility] IS WORKING WELL AND WILL NOT NEED THE REGLAN.
[2017-04-28] MEDS: IV NS 0.9% 1,000 ML IV PRN (12:08)
[2017-04-28 16:00] VITALS: BP 135/81
--- NOTE | 2017-04-28 16:10 | NUR ---
PT HAS HAD THREE LIQUID STOOLS TODAY. NEISHA, TRAFFIC SAFETY ADMINISTRATOR FOR GI, ASKS TO HAVE A JANAY CDIF COLLECTED. PATIENT HAS HAD LAXATIVE WITHIN THE LAST 48 HOURS. PER HOSPITAL PROTOCOL, MUST WAIT 24 HOURS AFTER LAST LOOSE STOOL TO COLLECT. IF PT IS STILL HAVING LIQUID STOOL BY 1300 TOMORROW, STOOL SAMPLE WILL BE COLLECTED. Addendum: 04/28/17 at 1652 by SARMAD WHITE RN PATIENT HAD MALLOX, NOT MOM 48 HOURS AGO. WILL AMEND DOCUMENTATION AND SEND NEXT STOOL FOR CDIF.
[2017-04-28] MEDS: SIMETHICONE 80 MG TAB.CHEW PO PRN (17:30)
[2017-04-28] MEDS: HYDROCODONE/APAP 5/325MG 1 EACH TABLET PO PRN ×2 (17:31→22:22)
--- NOTE | 2017-04-28 19:30 | NUR ---
MS RN NOTE RECEIVED PATIENT AWAKE, ALERT AND ORIENTED IN BED. PATIENT STATES THAT SHE HAS 4/10 ABDOMINAL PAIN. RELAXATION TECHNIQUES PROVIDED. NO RESPIRATORY DISTRESS NOTED. IV SITE INTACT, WITH NO REDNESS OR INFILTRATION. BED LOCKED AND IN LOWEST POSITION. SIDE RAILS UP, CALL LIGHT WITHIN REACH. WILL CONTINUE TO MONITOR.
[2017-04-28 20:00] VITALS: BP 129/87
[2017-04-28 22:00] VITALS: BP 129/87
[2017-04-29] MEDS: PANTOPRAZOLE 40 MG VIAL IV SCH (01:34)
[2017-04-29] MEDS: METOCLOPRAMIDE HCL 10 MG/2 ML VIAL IV SCH ×3 (01:34→11:09)
[2017-04-29] MEDS: PIPERACILLIN /TAZOBACTAM 3.375 G in IV NS 0.9% 50 ML IV SCH ×3 (01:34→11:08)
[2017-04-29] MEDS: IV NS 0.9% 1,000 ML IV PRN (04:16)
[2017-04-29] MEDS: MORPHINE SULFATE INJ 4 MG/ML DISP.SYRIN IV PRN (04:17)
--- NOTE | 2017-04-29 06:05 | NUR ---
MS RN NOTE PATIENT STABLE AT THIS TIME. NPO SINCE MIDNIGHT FOR PROCEDURE. PATIENT DID NOT HAVE A BOWEL MOVEMENT ALL NIGHT. KEPT CLEAN, DRY AND COMFORTABLE. WILL ENDORSE TO DAY SHIFT FOR EDUARD.
[2017-04-29 06:29] LABS: BASOPHILS % (AUTO) 0.2 % (0.0-2.0); EOSINOPHILS # (AUTO) 0.1 /CMM (0.0-0.7); EOSINOPHILS % (AUTO) 0.7 % (0.0-6.0); HEMATOCRIT 28 % (33-45); HEMOGLOBIN 9.6 g/dL (11.5-14.8); LYMPHOCYTES # (AUTO) 1.7 /CMM (0.8-4.8); MEAN CORPUSCULAR HEMOGLOBIN 34 PG (26.0-33.0); MEAN CORPUSCULAR HGB CONC 35 g/dl (31.0-36.0); MEAN CORPUSCULAR VOLUME 97 fL (82-100); MONOCYTES # (AUTO) 0.3 /CMM (0.1-1.30); MONOCYTES % (AUTO) 3.3 % (2.0-12.0); NEUTROPHILS # (AUTO) 6.3 /CMM (1.8-8.9); NEUTROPHILS % (AUTO) 75.8 % (43.0-81.0); PLATELET COUNT (AUTO) 312 /CMM (150-450); RED BLOOD CELL COUNT(AUTO) 2.84 MIL/uL (4.0-5.2); WHITE BLOOD COUNT (AUTO) 8.3 K/uL (4.3-11.0)
[2017-04-29 06:48] LABS: CALCIUM, SERUM 7.9 mg/dL (8.5-10.1); CREATININE 0.8 mg/dL (0.6-1.3); PHOSPHORUS 4.1 mg/dL (2.5-4.9); POTASSIUM 3.7 mmol/L (3.5-5.1)
--- NOTE | 2017-04-29 07:15 | NUR ---
REPORT RECEIVED AT THE BEDSIDE. PATIENT IS SLEEPING AT THIS TIME. NO SOB OR DISTRESS NOTED. PT FOR XRAY SMALL BOWEL SWALLOW TODAY. WILL KEEP NPO UNTIL AFTER PROCEDURE. BED IN A LOW POSITION, CALL LIGHT WITHIN PATIENT REACH.
[2017-04-29 08:00] VITALS: BP 131/74
--- NOTE | 2017-04-29 08:23 | NUR ---
HOLDING MORNING MEDS UPTIL SMALL BOWEL FOLLOW THROUGH CAN BE DONE. WILL ADMIN AFTER TESTING.
[2017-04-29] MEDS ORDERED: DIATR MEGLU/DIATRIZOATE SODIUM 120 ML BOTTLE (GASTROGRAPHIN) ONE (08:49)
--- NOTE | 2017-04-29 08:55 | NUR ---
PT TAKEN OFF FLOOR FOR TESTING. WILL GIVE AM MEDS WHEN SHE RETURNS.
[2017-04-29] MEDS: HYDROCHLOROTHIAZIDE 25 MG TABLET PO SCH (09:00)
--- NOTE | 2017-04-29 10:23 | NUR ---
PT BACK FROM SCAN, WILL NEED TO GO AGAIN IN ONE HOUR. STILL NPO FOR NOW. PT ASKS TO TAKE HER MEDICATIONS AFTER THE NEXT SCAN.
--- NOTE | 2017-04-29 11:05 | NUR ---
SPECIMEN OBTAINED TODAY 04/29/17 AT 1030. LIQUID STOOL. Addendum: 04/29/17 at 1105 by SARMAD WHITE RN Amended: Links added.
[2017-04-29] MEDS: SERTRALINE HCL 50 MG TABLET PO SCH (11:22)
[2017-04-29] MEDS: LamoTRIgine 100 MG TABLET PO SCH (11:22)
[2017-04-29 11:23] VITALS: BP 131/74
[2017-04-29] MEDS: VENLAFAXINE XR 150 MG CAP.SR.24H PO SCH (11:23)
[2017-04-29] MEDS: LISINOPRIL (20MG) 20 MG TABLET PO SCH (11:23)
[2017-04-29] MEDS: SIMETHICONE 80 MG TAB.CHEW PO PRN (11:45)
[2017-04-29] MEDS ORDERED: METR500T PO (13:44)
[2017-04-29] MEDS ORDERED: CIPR-262 PO (13:44)
[2017-04-29] MEDS ORDERED: ONDA4TAB5 PO (13:44)
[2017-04-29] MEDS ORDERED: SIME80TA15 PO (13:44)
--- NOTE | 2017-04-29 16:04 | NUR ---
DISCHARGE INSTRUCTIONS GIVEN TO THE PATIENT AND ABLE TO UNDERSTAND. ALL PAPERWORK SIGNED AND BELONGINGS ACCOUNTED FOR. PRESCRIPTIONS GIVEN TO THE PATIENT. FLU SHOT NOT GIVEN PATIENT REFUSES. IV REMOVED AND PRESSURE APPLIED. NO BLEEDING NOTED AT THE SITE. PATIENT LEFT IN STABLE CONDITION, VIA PRIVATE CAR, WITH TO HOME. NO SOB OR DISTRESS NOTED. PATIENT HAS INSTRUCTIONS TO FOLLOW UP POST DISCHARGE.
== END 2017-04-29 15:55 | disposition home or self-care (01) | DRG 871 ==
LOC: ER 03:36 → MEDSG2 06:43
PROVIDERS: ADMIT Nurse Practitioner Acute Care; ATTEND Nurse Practitioner Acute Care
PROC: 0DBM8ZX Excision of Descending Colon, Via Natural or Artificial Opening Endoscopic, Diagnostic (ICD-10-PCS; principal; 2017-04-24 10:40)
PROC: 0DB68ZX Excision of Stomach, Via Natural or Artificial Opening Endoscopic, Diagnostic (ICD-10-PCS; principal; 2017-04-24 10:40)
DX: A41.9 Sepsis, unspecified organism (principal); N17.0 Acute kidney failure with tubular necrosis; E87.2 Acidosis; K55.9 Vascular disorder of intestine, unspecified; A04.72 Enterocolitis due to Clostridium difficile, not specified as recurrent; E83.52 Hypercalcemia; K56.7 Ileus, unspecified; K62.5 Hemorrhage of anus and rectum; K59.00 Constipation, unspecified; E86.0 Dehydration; K21.9 Gastro-esophageal reflux disease without esophagitis; J44.9 Chronic obstructive pulmonary disease, unspecified; I10 Essential (primary) hypertension; F41.9 Anxiety disorder, unspecified; Z87.11 Personal history of peptic ulcer disease; Z85.3 Personal history of malignant neoplasm of breast; F31.9 Bipolar disorder, unspecified; J45.909 Unspecified asthma, uncomplicated; K29.70 Gastritis, unspecified, without bleeding; N20.0 Calculus of kidney; F99 Mental disorder, not otherwise specified; E73.9 Lactose intolerance, unspecified; K76.0 Fatty (change of) liver, not elsewhere classified; K64.8 Other hemorrhoids; Z68.27 Body mass index [BMI] 27.0-27.9, adult; R65.20 Severe sepsis without septic shock
CPT/HCPCS: 36415; 71045-TC; 74018; 74250-TC; 80048-TC; 80061-TC; 80076-TC; 81000-TC; 83605-TC; 83690-TC; 83735-TC; 84100-TC; 84443-TC; 84484-TC; 84703-TC; 85025-TC; 85027-TC; 86850-TC; 87040-TC; 87081-TC; 87086-TC; 88305-TC; 88342; A4216; A4606; A9560; A9563; C9113; G0480; J1364; J1885; J2270; J2405; J2543; J2704; J2765; J3010; J3490; J7030; J7060; J8597; Q9963; Q9967; Z7610